=== PATIENT | female | born 1965 | race Two or more races ===

== ENCOUNTER 2024-01-23 20:51 | Emergency (ER) | payer OTHER, SELFPAY ==
[2024-01-23] VITALS (20 sets, daily range): BP systolic 127–168; BP diastolic 56–97; PULSE 105–115; RESP 28–36; TEMP 36.2; O2SAT 97–100
[2024-01-23 21:31] LABS: Lactate* 2.1 mmol/L (0.5-1.9)
[2024-01-23 21:32] LABS: Glucose, Point-of-Care* 301 mg/dl (60-115)
[2024-01-23 21:33] LABS: Basophils Percent Auto 0.1 % (0.0-3.0); Eosinophils Percent Auto 0.2 % (0.0-7.0); Hematocrit 41.5 % (33.0-51.0); Hemoglobin* 13.9 gm/dL (12.0-16.0); Immature Granulocytes Pct Auto 0.2 %; Lymphocytes Percent Auto 2.3 % (20-44); Mean Corpuscular HGB Conc 34 gm/dL (32-36); Mean Corpuscular Hemoglobin 29 pg (26-34); Mean Corpuscular Volume 87 fL (80-100); Monocytes Percent Auto 4.1 % (0.0-11.0); Neutrophils Percent Auto 93.1 % (42.0-72.0); Platelet Count* 273 K/uL (140-440); Red Blood Count 4.77 m/uL (4.00-5.20); White Blood Count* 11.49 K/uL (4.50-11.00)
--- NOTE | 2024-01-23 21:41 | ED_ITS ---
HPI - General Adult General Chief complaint: Weakness Stated complaint: possible medication reaction (Dex) abd pain Time Seen by Provider: 01/23/24 21:36 History of Present Illness HPI narrative: Pt's daughter interpreting for pt. Pt got earache, sore throat this AM. Went to . Got dexamethasone PO in clinic. Since this, pt has been vomiting, diarrhea, green stools, abdominal pain. Pt has not been able to eat or drink. Pt is diabetic, has not eaten all day. 58-year-old woman presenting to the emergency department with complaint of sore throat beginning this morning. Was seen in urgent care and treated with dexamethasone with apparent sore throat. Since that time with numerous episodes of vomiting and also diarrhea 0 which is noted to be green. Intermittent abdominal pain, sounds to be cramping. Daughter tried your some Pedialyte which came back up. Does have diabetes and has not taken her meds today. No significant oral intake either. Does not look as though she was screened for COVID. No hematemesis or hematochezia described. Related Data Home Medications ?Medication ?Instructions ?Recorded ?Confirmed aspirin 81 mg capsule 81 mg PO DAILY 01/23/24 01/23/24 lisinopril 10 mg tablet 10 mg PO DAILY 01/23/24 01/23/24 metformin 1,000 mg tablet 1,000 mg PO BID 01/23/24 01/23/24 simvastatin 40 mg tablet 40 mg PO DAILY 01/23/24 01/23/24 Allergies Allergy/AdvReac Type Severity Reaction Status Date / Time No Known Drug Allergies Allergy Verified 01/23/24 21:12 Review of Systems Status of ROS: Reports: 6 or more systems reviewed and unremarkable except as noted in History and below Exam Narrative: Exam Narrative: Eyes are closed. She looks like she feels miserable. Cranial nerves 2-12 intact. Neck is supple without lymphadenopathy. Oropharynx symmetrical without edema there is moderate erythema in the posterior oropharynx. Sticky. No tonsillar swelling. No exudate. Lungs are clear. Heart is in a regular rhythm but tachycardic. Abdomen is diffusely mildly tender. No peritoneal signs. Bowel sounds are present. Extremities are without edema. No rash evident. Const: Vital Signs, click to edit/add: Vital Signs - 24 hr 01/23/24 21:07 01/23/24 21:23 01/23/24 21:24 Temperature 97.1 F L Pulse Rate 114 H 115 H Pulse Rate [Pulse Oximeter] 115 H Respiratory Rate 36 H Blood Pressure 130/72 Blood Pressure [Ri ght Upper Arm] 168/97 H Pulse Oximetry 97 100 100 Oxygen Delivery Me thod Room Air 01/23/24 21:30 01/23/24 21:41 01/23/24 21:45 Temperature Pulse Rate 110 H 105 H 107 H Pulse Rate [Pulse Oximeter] Respiratory Rate Blood Pressure 139/71 Blood Pressure [Ri ght Upper Arm] Pulse Oximetry 100 99 98 Oxygen Delivery Me thod 01/23/24 22:00 01/23/24 22:01 01/23/24 22:15 Temperature Pulse Rate 109 H 109 H 106 H Pulse Rate [Pulse Oximeter] Respiratory Rate Blood Pressure 129/67 Blood Pressure [Ri ght Upper Arm] Pulse Oximetry 100 100 100 Oxygen Delivery Me thod 01/23/24 22:30 01/23/24 22:32 01/23/24 22:33 Temperature Pulse Rate 108 H 107 H 108 H Pulse Rate [Pulse Oximeter] Respiratory Rate Blood Pressure 137/56 L Blood Pressure [Ri ght Upper Arm] Pulse Oximetry 99 99 99 Oxygen Delivery Me thod 01/23/24 22:45 01/23/24 22:56 01/23/24 23:00 Temperature Pulse Rate 111 H 111 H Pulse Rate [Pulse Oximeter] Respiratory Rate 28 H Blood Pressure Blood Pressure [Ri ght Upper Arm] Pulse Oximetry 100 100 Oxygen Delivery Me thod 01/23/24 23:01 01/23/24 23:15 01/23/24 23:30 Temperature Pulse Rate 113 H 111 H 109 H Pulse Rate [Pulse Oximeter] Respiratory Rate Blood Pressure 130/68 Blood Pressure [Ri ght Upper Arm] Pulse Oximetry 100 99 98 Oxygen Delivery Me thod 01/23/24 23:31 01/23/24 23:45 01/24/24 00:00 Temperature Pulse Rate 110 H 108 H 109 H Pulse Rate [Pulse Oximeter] Respiratory Rate Blood Pressure 127/60 Blood Pressure [Ri ght Upper Arm] Pulse Oximetry 99 98 98 Oxygen Delivery Me thod 01/24/24 00:01 01/24/24 00:01 01/24/24 00:01 Temperature Pulse Rate 109 H 109 H 109 H Pulse Rate [Pulse Oximeter] Respiratory Rate Blood Pressure 127/63 127/63 127/63 Blood Pressure [Ri ght Upper Arm] Pulse Oximetry 99 99 99 Oxygen Delivery Me thod 01/24/24 00:02 01/24/24 00:15 Temperature Pulse Rate 109 H 120 H Pulse Rate [Pulse Oximeter] Respiratory Rate Blood Pressure Blood Pressure [Ri ght Upper Arm] Pulse Oximetry 99 99 Oxygen Delivery Me thod Documenting provider has reviewed patient's vital signs: yes Course Vital Signs Vital signs: Initial Vital Signs Temperature 97.1 F L 01/23/24 21:07 Temperature Source Temporal Artery Scan 01/23/24 21:07 Pulse Rate 115 H 01/23/24 21:07 Respiratory Rate 36 H 01/23/24 21:07 Blood Pressure 168/97 H 01/23/24 21:07 Blood Pressure Mean 120 H 01/23/24 21:07 Blood Pressure Position Sitting 01/23/24 21:07 Pulse Oximetry 97 01/23/24 21:07 Oxygen Delivery Method Room Air 01/23/24 21:07 Vital Signs Temperature 97.1 F L 01/23/24 21:07 Pulse Rate 115 H 01/23/24 21:07 Respiratory Rate 36 H 01/23/24 21:07 Blood Pressure 168/97 H 01/23/24 21:07 Pulse Oximetry 97 01/23/24 21:07 Oxygen Delivery Method Room Air 01/23/24 21:07 Temperature 97.1 F L 01/23/24 21:07 Pulse Rate 120 H 01/24/24 00:15 Respiratory Rate 28 H 01/23/24 22:56 Blood Pressure 127/63 01/24/24 00:01 Pulse Oximetry 99 01/24/24 00:15 Oxygen Delivery Method Room Air 01/23/24 21:07 Medications Administered Medications: Discontinued Medications Generic Name Dose Route Start Last Admin Trade Name Freq PRN Reason Stop Dose Admin Hyoscyamine 0.25 mg 01/23/24 21:54 01/23/24 22:08 Hyoscyamine Sulfate 0.125 Mg Tab SUBLINGUAL 01/23/24 21:55 0.25 mg ONCE ONE Administration Sodium Chloride 1,000 mls @ 1,000 mls/hr 01/23/24 22:01 01/23/24 23:12 0.9 % Sodium Chloride 1000 Ml IV 01/23/24 23:00 Infused .Q1H ONE Infusion Lactated Ringer's 1,000 mls @ 1,000 mls/hr 01/23/24 23:00 01/24/24 00:16 Lactated Ringers 1000 Ml IV 01/23/24 23:59 Infused .Q1H ONE Infusion Ibuprofen 600 mg 01/24/24 00:16 01/24/24 00:25 Ibuprofen 200 Mg Tablet PO 01/24/24 00:17 600 mg ONCE ONE Administration Ondansetron HCl 4 mg 01/23/24 21:54 01/23/24 22:09 Ondansetron 2 Mg/Ml Inj IVP 01/23/24 21:55 4 mg ONCE ONE Administration Medical Decision Making MDM Narrative Medical decision making narrative: Appears to have had either med reaction or had a brewing gastroenteritis type picture I think when she was seen. In the setting of diabetes of will check chemistries in particular, CBC. Think with some IV hydration antiemetic and maybe antispasmodic she might be feeling better. Would screen again for strep though I think this is unlikely as well as COVID considering immediate problems. Ordered for Zofran and normal saline. Given then also hyoscyamine. Labs are generally reassuring. Only mildly elevated white count but glucose was over 300. Improved but still feels could benefit from further treatment. Given L of LR and ibuprofen. Discussed benefit of prednisone for apparent pharyngitis. Discussed potential/likely effect on blood sugars. See patient discharge plan for further discussion Lab Data Lab results reviewed: Yes I reviewed the patient's lab results Labs: Lab Results 01/23/24 01/23/24 01/23/24 Range/Units 21:24 21:29 21:54 WBC 11.49 H (4.50-11.00) K/uL RBC 4.77 (4.00-5.20) m/uL Hgb 13.9 (12.0-16.0) gm/dL Hct 41.5 (33.0-51.0) % MCV 87 (80-100) fL MCH 29 (26-34) pg MCHC 34 (32-36) gm/dL RDW Coeff of Ivanna 12.0 (11.5-15.5) % Plt Count 273 (140-440) K/uL Neut % (Auto) 93.1 H (42.0-72.0) % Lymph % (Auto) 2.3 L (20-44) % [place] % (Auto) 4.1 (0.0-11.0) % Eos % (Auto) 0.2 (0.0-7.0) % Baso % (Auto) 0.1 (0.0-3.0) % Neut # (Auto) 10.70 H (1.7-7.0) K/uL Lymph # (Auto) 0.30 L (0.90-2.90) K/uL [place] # (Auto) 0.50 (0.00-0.90) K/UL Eos # (Auto) 0.00 (0.00-0.50) K/uL Baso # (Auto) 0.00 (0.00-0.30) K/uL Abs Immat Gran (auto) 0.00 (0.00-0.30) K/uL Imm/Tot Granulo (auto) 0.2 % Sodium 133 L (135-149) mmol/L Potassium 4.3 (3.6-5.1) mmol/L Chloride 101 (96-114) mmol/L Carbon Dioxide 17 L (20-32) mmol/L Anion Gap 15 (7-15) mEq/L BUN 22 (7-30) mg/dL Creatinine 0.7 (0.5-1.5) mg/dL Estimated GFR 100 ml/min Glucose 320 H (60-115) mg/dL Lactate 2.1 H (0.5-1.9) mmol/L Calcium 9.9 (8.4-10.6) mg/dL Total Bilirubin 1.0 (0.1-1.5) mg/dL AST 28 (12-35) U/L ALT 30 (4-35) U/L Alkaline Phosphatase 96 (40-150) U/L Total Protein 8.9 H (6.0-8.3) g/dL Albumin 5.2 H (3.3-5.0) g/dL SARS-CoV-2 (PCR) Negative SARS-CoV-2 (Negative) Influenza Type A (PCR) Negative PCR FLU A (Negative) Influenza Type B (PCR) Negative PCR FLU B (Negative) Group A Strep DNA NOT DETECTED (Not Detectd) POC Glucose 301 H (60-115) mg/dl POC Troponin I 0.00 L (0.01-0.04) ng/ml ECG Data Attestation: I personally reviewed and interpreted this ECG as follows: (Sinus tachycardia at 110) Discharge Plan Discharge Clinical Impression: Vomiting, Dehydration, Pharyngitis Patient Disposition: Home w/ Parent or Adult Condition: Improved Additional Instructions: Consider slow advance of diet over the next 36 hours. Diluted juices, soup broths, toast, rice, crackers. Can take up to 600 mg of ibuprofen or up to 850 mg of acetaminophen per dose. I do not see clear evidence of a bacterial infection and so I am not sure that the cefdinir is something that I would take just yet. The prednisone I would normally prescribe at 40 mg daily for a few days. I am never really sure how sensitive people are going to be to the potentially stimulating affects of prednisone. You may prefer to stay at 20 mg daily but otherwise could go to 40 mg daily for 2 days and then to 20 mg for another couple of days. Should you have worsening difficulty swallowing/pain to the point that you can not maintain your secretions, experiencing any indication of difficulty breathing, please return to the emergency department. Sending you also with [facility] from [facility] for nausea. Considere un avance lento de la dieta zeyad las pr?ximas 36 horas. Jugos diluidos, caldos de sopa, tostadas, arroz, galletas saladas. Puede mitzi hasta 600 mg de ibuprofeno o hasta 850 mg de paracetamol por dosis. No veo evidencia tiara de jennifer infecci?n bacteriana, por lo que no estoy seguro de que cefdinir sea algo que pueda mitzi todav?a. La prednisona normalmente la prescribir?a en 40 mg al d?a zeyad unos d?as. [place] estoy realmente seguro de qu? groves sensibles ser?n las personas a los efectos potencialmente estimulantes de la prednisona. Es posible que prefiera permanecer en 20 mg al d?a, reagan de lo contrario podr?a aumentar a 40 mg al d?a zeyad 2 d?as y luego a 20 mg zeyad un par de d?as m?s. Si thomas dificultad para tragar/dolor empeora hasta el punto de que no puede mantener dawit secreciones, o experimenta alg?n indicio de dificultad para respirar, regrese al departamento de emergencias. Te env?o tambi?n con Zofran de [facility] para las n?useas. Prescriptions: No Action aspirin 81 mg capsule 81 mg PO DAILY lisinopril 10 mg tablet 10 mg PO DAILY metformin 1,000 mg tablet 1,000 mg PO BID simvastatin 40 mg tablet 40 mg PO DAILY Follow Up/Referrals: Sheryl Dunlap MD [Primary Care Provider] - Stand Alone Forms: [facility] Info Instructions
[2024-01-23 21:45] LABS: Albumin* 5.2 g/dL (3.3-5.0); Chloride* 101 mmol/L (96-114)
[2024-01-23 21:46] LABS: Potassium* 4.3 mmol/L (3.6-5.1); Slide Review Reflex No; Sodium* 133 mmol/L (135-149)
[2024-01-23 21:48] LABS: Anion Gap 15 mEq/L (7-15); Aspartate Amino Transferase* 28 U/L (12-35); Carbon Dioxide* 17 mmol/L (20-32); Creatinine* 0.7 mg/dL (0.5-1.5); Estimated Glomerular Filt Rate 100 ml/min; Total Protein* 8.9 g/dL (6.0-8.3)
[2024-01-23 21:49] LABS: Alanine Aminotransferase* 30 U/L (4-35); Alkaline Phosphatase* 96 U/L (40-150); Blood Urea Nitrogen* 22 mg/dL (7-30); Calcium* 9.9 mg/dL (8.4-10.6); Glucose* 320 mg/dL (60-115)
[2024-01-23] MEDS: HYOSCYAMINE SULFATE 0.125 MG TAB 0.25 MG SUBLINGUAL (22:08)
[2024-01-23] MEDS: 0.9 % SODIUM CHLORIDE 1000 ml 1,000 ML IV (22:09)
[2024-01-23] MEDS: ONDANSETRON 2 MG/ML inj 4 MG IVP (22:09)
[2024-01-23 22:31] LABS: Strep A DNA Probe* NOT DETECTED (Not Detectd)
[2024-01-23 22:44] LABS: PCR FLU A Negative PCR FLU A (Negative); PCR FLU B Negative PCR FLU B (Negative); SARS PCR* Negative SARS-CoV-2 (Negative)
[2024-01-23] MEDS: LACTATED RINGERS 1000 ML 1,000 ML IV (23:12)
[2024-01-24] VITALS: PULSE 109; O2SAT 98
[2024-01-24 00:01] VITALS: BP 127/63; PULSE 109; O2SAT 99
[2024-01-24 00:02] VITALS: PULSE 109; O2SAT 99
[2024-01-24 00:15] VITALS: PULSE 120; O2SAT 99
[2024-01-24] MEDS: IBUPROFEN 200 MG TABLET 600 MG PO (00:25)
== END 2024-01-24 00:32 | disposition home or self-care (01) ==
PROVIDERS: Emergency Provider Family Medicine; PCP Family Medicine
DX: E86.0 Dehydration (principal); R11.10 Vomiting, unspecified; J02.9 Acute pharyngitis, unspecified
CPT/HCPCS: 36415; 80053; 81001; 82947; 83605; 84484; 85025; 87631; 87651; 96361; 96374; 99284; A9270; J2405; J7030; J7120